=== PATIENT | male | born 1975 | race Caucasian/White ===

== ENCOUNTER → 2016-07-25 | Outpatient (CLI) | payer OTHER | LOC: HEART 5 10:57 | DX: J44.9 Chronic obstructive pulmonary disease, unspecified (principal) | CPT/HCPCS: 94060; 94729 ==

== ENCOUNTER → 2016-08-15 | Outpatient (CLI) | payer OTHER | LOC: SLEEP 21:30 | DX: G47.33 Obstructive sleep apnea (adult) (pediatric) (principal) | CPT/HCPCS: 95810 ==

== ENCOUNTER → 2016-09-04 | Outpatient (CLI) | payer OTHER | LOC: RAD 15:06 | DX: M54.2 Cervicalgia (principal); M54.9 Dorsalgia, unspecified; M25.562 Pain in left knee; M25.561 Pain in right knee; M25.512 Pain in left shoulder | CPT/HCPCS: 72050; 72072; 72110; 73030; 73564 ==

== ENCOUNTER → 2016-10-30 | Outpatient (CLI) | payer OTHER | LOC: CT 13:00 | DX: R91.1 Solitary pulmonary nodule (principal); G47.00 Insomnia, unspecified | CPT/HCPCS: 71250 ==

== ENCOUNTER → 2016-11-05 | Outpatient (CLI) | payer OTHER | LOC: CT 10-16 08:00 | DX: M54.5 Low back pain (principal) | CPT/HCPCS: 72131 ==

== ENCOUNTER → 2021-07-19 | Outpatient (CLI) | payer MEDICARE ==
[~2021-07-19] MED LIST: ELIQUIS2.5 MG PO; KLONOPIN1 MG PO; LISINOPRIL-HCT1 EAC1 PO; NEURONTIN800 MG PO; PERCOCET 7.5-31 EACH PO; SEROQUEL300 MG PO; TENORMIN 25 MG25 MG PO
== END ==
LOC: KOH-I 14:46
DX: M79.672 Pain in left foot (principal); M20.12 Hallux valgus (acquired), left foot
CPT/HCPCS: 73630

== ENCOUNTER → 2021-08-14 | Outpatient (CLI) | payer MEDICARE, OTHER ==
[~2021-08-14] MED LIST changes: +HYDROCODON-ACE1 EAC6 PO
[2021-08-14 08:12] LABS: HEMOGLOBIN 14.5 gm/dl (14.0-17.5); RED BLOOD COUNT 4.73 M/UL (4.20-5.50); WHITE BLOOD COUNT 11.6 K/UL (4.5-11.0)
[2021-08-14 08:36] LABS: BUN/CREATININE RATIO 11 (0-10)
== END ==
LOC: OPSV2 07:31
PROVIDERS: Podiatrist Foot & Ankle Surgery
DX: Z01.812 Encounter for preprocedural laboratory examination (principal)
CPT/HCPCS: 36415; 80048; 85027

== ENCOUNTER → 2021-08-17 | Day surgery (SDC) | payer MEDICARE, OTHER ==
[~2021-08-17] VITALS: Ht 185.4 cm; Wt 119.7 kg
== END | disposition home or self-care (01) ==
LOC: OR 05:57
DX: M21.612 Bunion of left foot (principal); M20.12 Hallux valgus (acquired), left foot; G89.29 Other chronic pain; M89.9 Disorder of bone, unspecified; F17.210 Nicotine dependence, cigarettes, uncomplicated; Z20.822 Contact with and (suspected) exposure to COVID-19
CPT/HCPCS: 73620; 73630; 76000; C1713; C1762; J0690; J1100; J1170; J1885; J2250; J2405; J2704; J2795; J3010; J3370; J7120

== ENCOUNTER → 2021-09-11 | Outpatient (CLI) | payer MEDICARE, OTHER | LOC: KOH-I 08:57 | DX: M79.672 Pain in left foot (principal); Z98.890 Other specified postprocedural states; Z98.1 Arthrodesis status | CPT/HCPCS: 73630 ==